=== PATIENT | female | born 1955 | race Caucasian/White ===

== ENCOUNTER 2016-11-01 15:15 | Emergency (ER) | payer OTHER ==
[~2016-11-01] VITALS: Ht 165.1 cm; Wt 97.0 kg
[2016-11-01 15:24] VITALS: TEMP 36.7; Ht 165.1 cm; Wt 97.0 kg
[2016-11-01] MEDS ORDERED: CALC1CHW65 PO (15:59)
[2016-11-01] MEDS ORDERED: LEVO88TA3 PO (15:59)
[2016-11-01] MEDS ORDERED: PRLSR20 PO (15:59)
[2016-11-01] MEDS ORDERED: MISC1TAB PO (15:59)
[2016-11-01] MEDS ORDERED: ASPI81TA28 PO (15:59)
[2016-11-01] MEDS ORDERED: ACET-1256 PO (15:59)
[2016-11-01] MEDS ORDERED: OMEG10002 PO (15:59)
[2016-11-01] MEDS ORDERED: ATOR-22 PO (15:59)
[2016-11-01] MEDS ORDERED: IBUP1CAP9 PO (15:59)
[2016-11-01] MEDS ORDERED: GABA-113 PO (15:59)
[2016-11-01] MEDS ORDERED: AMT50 PO (15:59)
[2016-11-01] MEDS ORDERED: LORAZEPAM 0.5 MG TAB PO STA (16:30)
--- NOTE | 2016-11-01 16:35 | DIAGNOSTIC IMAGING REPORT ---
RIGHT LOWER EXTREMITY VENOUS DOPPLER CLINICAL HISTORY: Right leg pain and swelling. COMPARISON STUDY: No previous studies for comparison. TECHNIQUE: Sonography of the deep venous system of the right lower extremity was performed. Compression and augmentation were evaluated. FINDINGS: The right common femoral, superficial femoral and popliteal veins were compressible. Augmentation was normal. Flow was shown within the deep calf vessels. Note is made of a 3.2 x 1.8 x 0.8 cm right popliteal cyst. IMPRESSION: 1. No evidence of deep venous thrombus within the right lower extremity. 2. Small right popliteal cyst. Electronically signed by: Boston Corbett M.D. 11/01/2016 4:34 PM Dictated Date/Time: 11/01/2016 4:33 PM
--- NOTE | 2016-11-01 16:49 | EMERGENCY ROOM VISIT NOTE ---
History First contact with patient: 15:27 Chief Complaint: SWELLING TO EXTREMITY Stated Complaint: R LEG PAIN AND SWELLING AT KNEE History of Present Illness The patient is a 61 year old female who presents to the Emergency Room with complaints of pain in her right lower back, hip and leg. The patient states that for the past few weeks, she has had pain in the right lower back with radiation into the hip. The pain has progressively worsened and now radiates down the front of the right leg into vision. She was taking Motrin with some relief initially. She states that she was on her feet a lot last week and she feels that this worsened the pain. For the past one week, the patient has noticed numbness in the front of her mcleod. She also feels that there is some swelling below her knee. She denies any injuries. She denies any history of similar symptoms. She rates her discomfort a 9/10. She denies any weakness in the legs, bowel or bladder incontinence. She denies any urinary symptoms or urinary retention. She states that she was seen at her primary care provider's office today and was sent here for x-rays of the back and an ultrasound of the leg. She denies any fevers or night sweats. She denies any history of blood clots and is not a smoker. Review of Systems A complete 10 point review of systems was reviewed with the patient with pertinent positives and negatives as per history of present illness. All else were negative. Social History Smoking Status: Never Smoker Current/Historical Medications Scheduled Amitriptyline Hcl (Elavil), 50 MG PO HS Aspirin (Aspirin Ec), 81 MG PO QAM Atorvastatin (Lipitor), 20 MG PO HS Calcium Phosphate-Cholecalcife (Calcium/Vitamin D3 Gummie), 1 TAB PO QAM Gabapentin (Neurontin), 300 MG PO HS Levothyroxine Sodium (Levothyroxine Sodium), 88 MCG PO DAILYBB Methylprednisolone (Medrol Dosepak), 0 PO DAILY Misc Natural Products (Glucosamine Chondroitin C), 1 TAB PO QAM [place]-3 Fatty Acids (Fish Oil), 3,000 MG PO QAM Omeprazole (Prilosec), 20 MG PO QAM Scheduled PRN Acetaminophen (Tylenol), 1,000 MG PO DIRECTED PRN for Pain or Fever Hydrocodone/Acetaminophen 5MG/325MG ([place] 5MG/325MG), 1-2 TABLET PO Q4H PRN for Pain Ibuprofen (Ibuprofen), 800 MG PO DIRECTED PRN for Pain or Fever Physical Exam Vital Signs Date Time Temp Pulse Resp B/P (MAP) Pulse Ox O2 Delivery O2 Flow Rate FiO2 11/01/16 18:16 98 20 130/76 98 11/01/16 15:24 36.7 104 20 163/100 97 Room Air Physical Exam VITALS: Vitals are noted on the nurse's note and reviewed by myself. Vital signs stable. GENERAL: This is a 61-year-old female, in no acute distress, nondiaphoretic, well-developed well-nourished. SKIN: The skin was without rashes, erythema, edema, or bruising. HEART: Regular rate and rhythm without murmurs gallops or rubs. LUNGS: Clear to auscultation bilaterally without wheezes, rales or rhonchi. ABDOMEN: Soft, nontender to palpation. MUSCULOSKELETAL: There is no significant tenderness of the lumbar spine or right lower extremity. Strength 4/5 in the right lower extremity, 5/5 in the left lower extremity. EXTREMITIES: No erythema, warmth or palpable cord of the right lower extremity. Dorsalis pedis pulse 2+. NEURO: Patient was alert and oriented to person place and time. Decreased sensation to the anterior aspect of the right lower leg. Right patellar reflex decreased compared to left. Medical Decision & Procedures ER Provider Diagnostic Interpretation: RIGHT LOWER EXTREMITY VENOUS DOPPLER IMPRESSION: 1. No evidence of deep venous thrombus within the right lower extremity. 2. Small right popliteal cyst. MRI OF THE LUMBAR SPINE WITHOUT CONTRAST IMPRESSION: 1. Mild multilevel degenerative disc disease and severe multilevel facet arthrosis, most pronounced at L4-L5. 2. No significant central canal or neural foraminal stenosis. 3. No fracture. Medications Administered Medications (Trade) Dose Ordered Sig/Miguel Route Start Time Stop Time Status Last Admin Dose Admin Lorazepam (Ativan Tab) 0.5 mg NOW STAT PO 11/01/16 16:30 11/01/16 16:32 DC 11/01/16 16:50 0.5 MG Acetaminophen/ Hydrocodone Bitart ([place] 5/325 Tab) 1 tab NOW STAT PO 11/01/16 18:17 11/01/16 18:18 DC 11/01/16 18:25 1 TAB ED Course The patient was evaluated as above. Ultrasound of the leg was performed and read by radiology. Patient was medicated with 0.5 mg Ativan prior to MRI. MRI was performed and read by radiology. Patient was reevaluated and 1 tablet [place] was ordered for pain. Findings were discussed with the patient. She will be discharged home. Discharge instructions were reviewed with the patient. The patient verbalized understanding of my assessment and treatment plan and was discharged home in good condition. Medical Decision Differential diagnosis includes cauda equina syndrome, cord compression, disc herniation, muscle spasm, lumbar strain, epidural abscess, malignancy, transverse myelitis, urinary tract infection, colitis, diverticulitis, kidney stone, DVT, among others. The patient is a 61-year-old female who presents today complaining of right low back pain radiating down the right leg. The patient was seen by her primary care provider's office this morning and they sent her here due to concern for a possible blood clot. Ultrasound was performed but did not show any evidence of blood clots in the leg. Due to the patient's numbness, I was concerned about the possibility of cauda equina syndrome/cord compression. For this reason, MRI of the lumbar spine was obtained. Fortunately this did not show any surgical emergencies. The patient does have arthritis in the spine. She will be placed on a course of steroids for her symptoms. She was instructed to follow-up with her primary care provider for further evaluation. Conservative measures were discussed with the patient. She verbalized understanding of my assessment and treatment plan. Based on the patient's presentation and work up, I feel the patient is stable for outpatient treatment. The patient was educated to return to the emergency department for any worsening of their current condition or new/concerning symptoms. She will follow up with her PCP. Blood Pressure Screening Patient's blood pressure: Elevated blood pressure Blood pressure disposition: Elevated BP felt to be situational Impression Primary Impression: Lumbar radiculopathy, right Departure Information Dispostion Home / Self-Care Condition GOOD Prescriptions Hydrocodone/Acetaminophen 5MG/325MG ([place] 5MG/325MG) Tab 1-2 TABLET PO Q4H Y for Pain, #15 TAB For Initial Treatment Prov: Yareli Colon PA-C 11/01/16 Methylprednisolone (MEDROL DOSEPAK) 4 Mg Tank 0 PO DAILY, #1 PKT Prov: Yareli Colon PA-C 11/01/16 Patient Instructions My [facility] Additional Instructions You have been treated in the Emergency Department for Back Pain. You have received pain medicine in the emergency department which impairs your ability to operate a vehicle. It is illegal for you to drive after receiving these medicines. You have been prescribed [place] to be used for pain control. This is a narcotic medication. You cannot drive or consume alcohol while on this medicine. This medicine should only be used for pain that cannot be controlled with over-the- counter pain medicines. You have been prescribed a Medrol Dosepak. This is a steroid which will help decrease your inflammation. Take the medicine as prescribed. Take the ENTIRE 6 day course of the steroids. You should schedule a follow-up appointment in 2-3 days with your Primary Care Provider for further evaluation and treatment of your back pain. Return to the Emergency Department if your current symptoms worsen despite treatment course outlined above, or if you develop any of the following symptoms : intractable pain despite aforementioned treatment course, loss of control of your bowel or bladder, numbness or tingling in your groin, or development of a fever.
--- NOTE | 2016-11-01 18:10 | DIAGNOSTIC IMAGING REPORT ---
MRI OF THE LUMBAR SPINE WITHOUT CONTRAST CLINICAL HISTORY: Right leg and back pain. COMPARISON STUDY: No previous studies for comparison. TECHNIQUE: Utilizing a 1.5 Abi magnet and dedicated coil, multiplanar, multiecho imaging of the lumbar spine was performed without IV contrast. FINDINGS: For purposes of numbering on this exam, the L5-S1 disc space is assigned to axial image 23 of 25. Alignment of lumbar spine is anatomic. Vertebral body heights are maintained. There is no suspicious marrow replacement. Conus terminates at the L1-L2 level. Paravertebral soft tissues are unremarkable. There is no intracanalicular mass or fluid collection. L1-2: There is minimal disc bulge and facet arthrosis. The central canal and neural foramen are patent. L2-3: There is facet arthrosis. The central canal and neural foramen are patent. L3-4: There is moderate facet arthrosis. The central canal and neural foramen are patent. L4-5: There is severe facet arthrosis. Central canal and neural foramen are patent. L5-S1: There is disc space narrowing with a tiny left paracentral disc protrusion. There is facet arthrosis. Central canal and neural foramen are patent. IMPRESSION: 1. Mild multilevel degenerative disc disease and severe multilevel facet arthrosis, most pronounced at L4-L5. 2. No significant central canal or neural foraminal stenosis. 3. No fracture. Electronically signed by: Boston Corbett M.D. 11/01/2016 6:09 PM Dictated Date/Time: 11/01/2016 6:02 PM
[2016-11-01 18:16] VITALS: BP 130/76; PULSE 98; O2SAT 98
[2016-11-01] MEDS ORDERED: HYDROCODONE/ACETAMOPHEN 5/325MG TAB PO STA (18:17)
[2016-11-01] MEDS ORDERED: METH4PAK PO (18:29)
[2016-11-01] MEDS ORDERED: HYDR-5688 PO (18:29)
== END 2016-11-01 18:45 | disposition home or self-care (01) ==
LOC: C.EDB 15:17 → C.EDC 18:45
DX: M54.16 Radiculopathy, lumbar region (principal); Z79.82 Long term (current) use of aspirin